=== PATIENT | female | born 1990 | race Caucasian/White ===

== ENCOUNTER 2024-01-22 19:38 | Inpatient (IN) | payer OTHER, SELFPAY ==
[2024-01-22 20:11] VITALS: BP 123/80
[2024-01-22 20:22] LABS: % Basophils 0.4 % (0-2); % Eosinophils 1.4 % (0-6); % Immature Granulocytes 1.5 % (0-0.5); % Lymphocytes 14.6 % (20.5-51.1); % Monocytes 6.2 % (1.7-9.3); % Neutrophils 75.9 % (42.2-75.2); Absolute Eosinophils 0.2 10^3/uL (0-0.7); Absolute Immature Granulocytes 0.2 10^3/uL (0-0.05); Absolute Lymphocytes 1.6 10^3/uL (1.2-3.4); Absolute Monocytes 0.7 10^3/uL (0.1-0.6); Absolute Neutrophils 8.3 10^3/uL (1.4-6.5); Hematocrit 33.4 % (37.0-47.0); Hemoglobin 11.5 g/dL (12.0-16.0); Mean Corp Hgb Conc. 34.4 g/dL (33.0-37.0); Mean Corpuscular Hgb 27.5 pg (27.0-31.0); Mean Corpuscular Volume 79.9 fL (81.0-99.0); Mean Platelet Volume 10.7 fL (7.4-10.4); Nucleated Red Blood Cells % 0 %; Platelet Count 203 10^3/uL (130-400); Red Blood Cell Count 4.18 10^6/uL (4.20-5.40); Red Cell Dist. Width 13.6 % (11.5-14.5); White Blood Cell Count 10.9 10^3/uL (4.8-10.8)
[2024-01-22] MEDS: LR 1000 IV (21:00)
[2024-01-23] MEDS: LR 1000 IV (00:05)
[2024-01-23] MEDS: PENICILLIN 110 UNITS IV (00:05)
[2024-01-23] MEDS: PITOCIN 30 UNITS/NSS 500 ML IV (00:30)
[2024-01-23] MEDS: PENICILLIN 55 UNITS IV (04:03)
[2024-01-23] MEDS: SUBLIMAZE 100 MCG EPIDURAL (05:38)
[2024-01-23] MEDS: FENTANYL/BUPIVACAINE 100 EPIDURAL (05:38)
[2024-01-23] MEDS: ZYRTEC 10 MG PO (08:24)
[2024-01-23] MEDS: PRENATAL PLUS 1 TABLET PO (08:24)
[2024-01-23] MEDS: ZOLOFT 50 MG PO (08:24)
[2024-01-23] MEDS: MOTRIN 600 MG PO (21:45)
[2024-01-24 05:32] LABS: Hematocrit 32.4 % (37.0-47.0); Hemoglobin 11.2 g/dL (12.0-16.0)
[2024-01-24] MEDS: PRENATAL PLUS 1 TABLET PO (07:23)
[2024-01-24] MEDS: MOTRIN 600 MG PO ×3 (07:23→20:58)
[2024-01-24] MEDS: ZYRTEC 10 MG PO (07:23)
[2024-01-24] MEDS: ZOLOFT 50 MG PO (07:23)
[2024-01-24 13:30] LABS: Syphilis/T. pallidum Ab Reflex Negative (Negative)
[2024-01-25] MEDS: MOTRIN 600 MG PO (06:26)
[2024-01-25] MEDS: ZOLOFT 50 MG PO (07:15)
[2024-01-25] MEDS: ZYRTEC 10 MG PO (07:15)
[2024-01-25] MEDS: PRENATAL PLUS 1 TABLET PO (07:15)
== END 2024-01-25 11:53 | disposition home or self-care (01) | DRG 807 ==
LOC: LDRP 19:38
PROVIDERS: ADMITTING PHYSICIAN Obstetrics & Gynecology; FAMILY PHYSICIAN Internal Medicine; REFERRING PHYSICIAN Obstetrics & Gynecology
PROC: 10E0XZZ Delivery of Products of Conception, External Approach (ICD-10-PCS; 2024-01-23)
PROC: 3E033VJ Introduction of Other Hormone into Peripheral Vein, Percutaneous Approach (ICD-10-PCS; 2024-01-23)
DX: O99.824 Streptococcus B carrier state complicating childbirth (principal); Z37.0 Single live birth; Z3A.39 39 weeks gestation of pregnancy; J45.909 Unspecified asthma, uncomplicated; O99.52 Diseases of the respiratory system complicating childbirth; Z14.01 Asymptomatic hemophilia A carrier; F32.81 Premenstrual dysphoric disorder; O77.0 Labor and delivery complicated by meconium in amniotic fluid
CPT/HCPCS: 36415; 85014; 85018; 85025; 86780; 86850; 86900; 86901

== ENCOUNTER 2024-01-30 21:21 | Inpatient (IN) | payer OTHER, SELFPAY ==
[2024-01-30 19:05] VITALS: BMI 29.2
[2024-01-30 19:16] VITALS: BP 164/87
[2024-01-30 19:52] LABS: Hematocrit 35.9 % (37.0-47.0); Hemoglobin 12.7 g/dL (12.0-16.0); Mean Corp Hgb Conc. 35.4 g/dL (33.0-37.0); Mean Corpuscular Volume 79.2 fL (81.0-99.0); Mean Platelet Volume 9.7 fL (7.4-10.4); Platelet Count 232 10^3/uL (130-400); Red Blood Cell Count 4.53 10^6/uL (4.20-5.40); White Blood Cell Count 8.5 10^3/uL (4.8-10.8)
[2024-01-30] MEDS: TYLENOL 1000 MG PO (20:05)
[2024-01-30] MEDS: PROCARDIA XL (EXTENDED RELEASE) 30 MG PO (20:05)
[2024-01-30 20:06] LABS: ALT (SGPT) 29 U/L (0-35); AST (SGOT) 23 U/L (14-36); Albumin 3.6 g/dl (3.5-5.0); Alkaline Phosphatase 89 U/L (38-126); Blood Urea Nitrogen 16 mg/dl (7-17); Calcium 9.3 mg/dl (8.4-10.2); Carbon Dioxide 24 mmol/L (22-30); Chloride 106 mmol/L (98-107); Estimated Creatinine Clearance 113 ml/min; Glucose 89 mg/dl (70-99); Potassium 4.1 mmol/L (3.5-5.1); Sodium 137 mmol/L (135-145); Total Bilirubin 0.5 mg/dl (0.2-1.3); Total Protein 6.5 g/dl (6.3-8.2); eGFR > 60.00
[2024-01-30] MEDS: LR 1000 IV (20:56)
[2024-01-30] MEDS: MAGNESIUM SULFATE 100 IV (20:57)
[2024-01-30] MEDS: MAGNESIUM SULFATE 40 GRAM 1000 IV (21:21)
[2024-01-31] MEDS: TYLENOL 1000 MG PO ×2 (01:44→18:57)
[2024-01-31] MEDS: MOTRIN 800 MG PO ×2 (07:28→13:24)
[2024-01-31] MEDS: PROCARDIA XL (EXTENDED RELEASE) 30 MG PO (08:30)
[2024-01-31] MEDS: LR 1000 IV (10:21)
== END 2024-01-31 20:30 | disposition home or self-care (01) | DRG 776 ==
LOC: LDRP 21:21
PROVIDERS: ADMITTING PHYSICIAN Obstetrics & Gynecology
DX: O14.15 Severe pre-eclampsia, complicating the puerperium (principal); R51.9 Headache, unspecified; J45.909 Unspecified asthma, uncomplicated; F32.81 Premenstrual dysphoric disorder; Z82.49 Family history of ischemic heart disease and other diseases of the circulatory system; Z80.0 Family history of malignant neoplasm of digestive organs; Z80.52 Family history of malignant neoplasm of bladder
CPT/HCPCS: 80053; 85027